=== PATIENT | female | born 1950 | race Hispanic/Latino ===

== ENCOUNTER → 2017-09-30 | Outpatient (CLI) | payer MEDICARE ==
[~2017-09-30] MED LIST: BYSTOLIC10 MG PO; CYMBALTA30 MG PO; LOSARTAN POTAS100 MG PO; PRAVASTATIN SOD20 MG PO; TRAZODONE HCL50 MG PO
--- NOTE | 2017-09-30 17:43 | Diagnostic Imaging Report ---
Lymphoscintigraphy Reason for Exam: Left breast cancer; scheduled for sentinel lymph node biopsy Radiopharmaceutical: Tc-99m filtered sulfur colloid 1.3 mCi Report: The radiotracer was given as two separate injections intradermally at the edge of the left areola. A single focal area of increased tracer accumulation is seen in the left axilla. No accumulation of tracer is seen in the midline of the chest or in the neck. Impression: Injection for sentinel lymph node mapping. A single sentinel lymph node is identified in the left axilla. Signed by: Dr. Angelina Mills M.D. on 09/30/2017 5:40 PM
== END ==
LOC: NM 13:53
PROVIDERS: ATTEND Surgery
DX: C50.912 Malignant neoplasm of unspecified site of left female breast (principal)
CPT/HCPCS: 78195; A9541

== ENCOUNTER 2017-10-01 06:59 | Observation (INO) | payer MEDICARE ==
[2017-09-30 15:55] LABS: BASOPHILS # (AUTO) 0.1 (0.0-0.1); BASOPHILS % 0.5 % (0.0-1.0); EOSINOPHILS % 10.1 % (0.0-6.0); HEMATOCRIT 33.9 % (34.2-44.1); HEMOGLOBIN 11.6 g/dL (12.0-16.0); LYMPHOCYTES % 20.5 % (18.0-39.1); MEAN CORPUSCULAR HEMOGLOBIN 29.2 pg (28-32); MEAN CORPUSCULAR HGB CONC 34.2 g/dL (31-35); MEAN CORPUSCULAR VOLUME 85.4 fL (81-99); MONOCYTES # (AUTO) 0.7 (0.2-0.8); MONOCYTES % 6.6 % (4.4-11.3); NEUTROPHILS # (AUTO) 6.1 (2.1-6.9); NEUTROPHILS % 61.8 % (38.7-80.0); PLATELET COUNT 206 x10e3/uL (140-360); RED BLOOD COUNT 3.97 x10e6/uL (3.6-5.1); RED CELL DISTRIBUTION WIDTH 12.8 % (11.7-14.4)
[2017-09-30 16:11] LABS: ANION GAP 13.9 mmol/L (8-16); BLOOD UREA NITROGEN 21 mg/dL (7-26); BUN/CREATININE RATIO 28 (6-25); CALCIUM 10.1 mg/dL (8.4-10.2); CARBON DIOXIDE 29 mmol/L (22-29); CHLORIDE 94 mmol/L (98-107); CREATININE, SERUM 0.75 mg/dL (0.57-1.11); EST GLOMERULAR FILTRATION RATE > 60 ML/MIN (60-); GLUCOSE 91 mg/dL (74-118); SODIUM 134 mmol/L (136-145)
[2017-09-30 16:13] LABS: POTASSIUM 2.9 mmol/L (3.5-5.1)
--- NOTE | 2017-09-30 16:39 | Diagnostic Imaging Report ---
PROCEDURE: X-RAY CHEST, TWO VIEWS COMPARISON: None. INDICATIONS: PREOP CXR FINDINGS: LUNGS: Sclerotic osseous lesion versus calcified nodule in the apex of the left lung measures 4 mm. Right lung is clear. The pulmonary vascular markings are normal. PLEURA: No effusions or pneumothorax. HEART \T\ MEDIASTINUM: The heart is top normal in size. The aorta is ectatic. BONES \T\ SOFT TISSUES: No lytic lesions. Soft tissues are unremarkable. CONCLUSION: Bone island or calcified nodule at left lung apex. Recommend apical lordotic images for further evaluation. Dictated by: Mic Johnson M.D. on 09/30/2017 at 16:41 Electronically approved by: Mic Johnson M.D. on 09/30/2017 at 16:41
[~2017-10-01] VITALS: Ht 157.5 cm; Wt 74.8 kg
--- OUTSIDE RECORDS SUMMARY | 2017-10-01 07:02 | XMS REPORT ---
Author Author [facility] Address Unknown Phone Unavailable Care Team Providers Care Production Control Expert Name Role Phone EFREN ARRIOLA Unavailable Unavailable Problems This patient has no known problems. Allergies, Adverse Reactions, Alerts This patient has no known allergies or adverse reactions. Medications This patient has no known medications. Results Test Description Test Time Test Comments Text Results Atomic Results Result Comments CHEST [address] [address] Patient Name: GALLO GONZALEZ MR #: [id number] : 1950 Age/Sex: 66/F Req #: [id number] Adm Physician: Ordered by: EFREN ARRIOLA MD Report #: [id number] Location: OR Room/Bed: Procedure: [id number] DX/CHEST 2 VIEWS Exam Date: 09/30/17 Exam Time: 1601 REPORT STATUS: Signed PROCEDURE: X-RAY CHEST, TWO VIEWS COMPARISON: None. INDICATIONS: PREOP CXR FINDINGS: LUNGS: Sclerotic osseous lesion versus calcified nodule in the apex of the left lung measures 4 mm. Right lung is clear. The pulmonary vascular markings are normal. PLEURA: No effusions or pneumothorax. HEART T MEDIASTINUM: The heart is top normal in size. The aorta is ectatic. BONES T SOFT TISSUES: No lytic lesions. Soft tissues are unremarkable. CONCLUSION: Bone island or calcified nodule at left lung apex. Recommend apical lordotic images for further evaluation. Dictated by: Shyla Johnson M.D. on 09/30/2017 at 16:41 Electronically approved by : Shyla Johnson M.D. on 09/30/2017 at 16:41 Dictated By: SHYLA JOHNSON MD 40 COPY TO: EFREN ARRIOLA MD NM LYMPHOSCINTIGRAPHY INCL INJ [place] [address] Patient Name: GALLO GONZALEZ MR #: [id number] : 1950 Age/Sex: 66/F Req #: [id number] Adm Physician: Ordered by: EFREN ARRIOLA MD Report #: [id number] Location: [place] Room/Bed: Procedure: [id number] NM/NM LYMPHOSCINTIGRAPHY INCL INJ Exam Date: Exam Time: REPORT STATUS: Signed Lymphoscintigraphy Reason for Exam: Left breast cancer; scheduled for sentinel lymph node biopsy Radiopharmaceutical: Tc-99m filtered sulfur colloid 1.3 mCi Report: The radiotracer was given as two separate injections intradermally at the edge of the left areola. A single focal area of increased tracer accumulation is seen in the left axilla. No accumulation of tracer is seen in the midline of the chest or in the neck. Impression: Injection for sentinel lymph node mapping. A single sentinel lymph node is identified in the left axilla. Signed by: Dr. Diana Mills M.D. on 09/30/2017 5:40 PM Dictated By: DIANA MILLS MD 39 COPY TO: EFREN ARRIOLA MD
[2017-10-01] MEDS ORDERED: CEFAZOLIN SOD 1 GM VIAL ONE ×2 (07:52→18:47)
[2017-10-01] MEDS ORDERED: POTASSIUM CHLORIDE 20MEQ/100ML 100 ML IV ONE (08:00)
[2017-10-01] MEDS ORDERED: BACITRACIN 50,000 UNIT VIAL ONE (12:53)
[2017-10-01] MEDS ORDERED: BUPIVACAINE 0.25%/EPI 30ML SDV INJ ONE (12:53)
--- NOTE | 2017-10-01 15:28 | Operative Report ---
DATE OF PROCEDURE: October 01, 2017 PREOPERATIVE DIAGNOSIS: Carcinoma of the left breast. POSTOPERATIVE DIAGNOSIS: Carcinoma of the left breast. OPERATION PERFORMED: Left total mastectomy with left axillary sentinel node dissection and right total mastectomy. ANESTHESIA: General. COMPLICATIONS: None. ESTIMATED BLOOD LOSS: 200 mL. DESCRIPTION OF PROCEDURE: With the patient lying in bed in the supine position under good general endotracheal anesthesia, after having undergone a sentinel node mapping and localization of the left axilla, both breasts and chest were prepped with Betadine solution and draped in the usual manner. The right breast was done first. An elliptical incision was made to include the nipple areolar complex, and flaps were then developed in the subcutaneous plane in all directions. The borders of the flap were superiorly the clavicle, medially the sternum, inferiorly the rectus fascia, and laterally the latissimus dorsi. The breast tissue was then taken off of the pectoralis major muscle including the fascia all the way down to the lateral border of the pectoralis muscle, and the breast was totally and completely removed and sent for pathological examination. It was properly labeled. Hemostasis was ascertained. After this was done, a matching incision was then made in the left breast to include the nipple areolar complex, and flaps were similarly developed in all directions and the breast was removed using the same exact technique. The tumor was not violated in any of its points of dissection, and the breast was totally removed and sent also for pathological examination. Using the Neoprobe, the sentinel node was easily identified in the axilla, and the axillary fascia was opened and 2 large lymph nodes with very high counts of upwards of 1500 were encountered. The rest of the axilla was pretty much quiet, and the 2 lymph nodes were then slowly and carefully removed. All bleeding points were electrocoagulated or ligated with 3-0 Vicryl, and the specimen was sent for pathological examination. The wound was irrigated. Hemostasis was ascertained, and the case was then turned over to Dr. Grossman for bilateral breast reconstructions. Job#: [id number] EV
[2017-10-01] MEDS: LACTATED RINGER'S 1,000 ML IV SCH (17:22)
[2017-10-01] MEDS ORDERED: HYDROMORPHONE 1MG/1ML INJ IV PRN (17:30)
[2017-10-01] MEDS ORDERED: ACETAMINOPHEN 325 MG TAB PO PRN (17:30)
[2017-10-01] MEDS ORDERED: ONDANSETRON HCL 4 MG ORAL DISINTEGRATING TAB SL PRN (17:30)
[2017-10-01] MEDS ORDERED: MIDAZOLAM HCL 2 MG/2 ML VIAL ONE (18:06)
[2017-10-01] MEDS ORDERED: FENTANYL CITRATE/PF 100MCG/2 ML INJ ONE (18:06)
[2017-10-01 18:24] VITALS: BP 156/65
[2017-10-01] MEDS ORDERED: SEVOFLURANE INHAL SOLN 250 ML PEN BTL ONE (18:47)
[2017-10-01] MEDS ORDERED: PROPOFOL IV EMULSION 10 MG/ML 20 ML VIAL ONE (18:47)
[2017-10-01] MEDS ORDERED: ONDANSETRON HCL INJ 2 MG/ML VIAL ONE (18:47)
[2017-10-01] MEDS ORDERED: LIDOCAINE HCL 2% LOCAL INJ 5 ML SDV VIAL INJ ONE (18:47)
[2017-10-01] MEDS ORDERED: ROCURONIUM BROMIDE 10 MG/ML 5ML VIAL ONE (18:47)
[2017-10-01] MEDS ORDERED: DEXAMETHASONE SOD PHOS INJ 4 MG/ML VIAL ONE (18:47)
[2017-10-01 20:00] VITALS: BP 150/88
[2017-10-01] MEDS: HYDROCODONE/APAP 7.5MG-325MG 1 EA TAB PO PRN (21:05)
[2017-10-01] MEDS: CEFAZOLIN SOD 1 GM VIAL IV SCH (21:12)
[2017-10-01] MEDS ORDERED: CEFAZOLIN SOD 1 GM/NS 50ML 50 ML IV SCH (22:00)
[2017-10-01] MEDS: TRAZODONE HCL 50 MG TAB PO SCH (22:43)
[2017-10-02] VITALS (7 sets, daily range): BP systolic 123–159; BP diastolic 58–88
[2017-10-02] MEDS: LACTATED RINGER'S 1,000 ML IV SCH (01:22)
[2017-10-02] MEDS: CEFAZOLIN SOD 1 GM VIAL IV SCH ×2 (05:30→14:45)
[2017-10-02 07:06] LABS: HEMATOCRIT 23.7 % (34.2-44.1); HEMOGLOBIN 7.9 g/dL (12.0-16.0)
[2017-10-02] MEDS ORDERED: DOCUSATE SODIUM 100 MG CAP PO PRN (08:00)
[2017-10-02 08:22] LABS: ANION GAP 12.2 mmol/L (8-16); BLOOD UREA NITROGEN 14 mg/dL (7-26); BUN/CREATININE RATIO 22 (6-25); CALCIUM 8.5 mg/dL (8.4-10.2); CARBON DIOXIDE 29 mmol/L (22-29); CHLORIDE 99 mmol/L (98-107); CREATININE, SERUM 0.65 mg/dL (0.57-1.11); EST GLOMERULAR FILTRATION RATE > 60 ML/MIN (60-); GLUCOSE 114 mg/dL (74-118); POTASSIUM 3.2 mmol/L (3.5-5.1); SODIUM 137 mmol/L (136-145)
[2017-10-02] MEDS: NEBIVOLOL 10 MG TAB PO SCH (08:33)
[2017-10-02] MEDS: LOSARTAN POTASSIUM 100 MG TAB PO SCH (08:33)
[2017-10-02] MEDS ORDERED: NEBIVOLOL 10 MG TAB PO SCH (09:00)
[2017-10-02] MEDS ORDERED: DOCUSATE SODIUM 100 MG CAP PO SCH ×2 (09:00)
[2017-10-02] MEDS ORDERED: MUPIROCIN 2% OINT 22 GM TUBE TOP ONE (09:00)
[2017-10-02] MEDS ORDERED: TRAZODONE HCL 50 MG TAB PO SCH (09:00)
--- NOTE | 2017-10-02 09:37 | Operative Report ---
DATE OF PROCEDURE: October 01, 2017 PREOPERATIVE DIAGNOSIS: Carcinoma, left breast. POSTOPERATIVE DIAGNOSES 1. Acquired absence of left breast and nipple. 2. Acquired absence of right breast and nipple. PROCEDURE: Bilateral reconstruction with allograft and implants. ANESTHESIA: General. HISTORY: The patient is a 66-year-old female with biopsy proven carcinoma of the left breast. She is undergoing left modified radical mastectomy with sentinel node biopsy and prophylactic right breast mastectomy by the general surgery service. The patient wishes to have immediate reconstruction following the mastectomies. The risks, benefits and alternatives of treatment were discussed with the patient. She has signed the [place] [employer] consent forms. DETAILS OF PROCEDURE: The patient was marked preoperatively in the holding area. She was taken to the OR by the general surgery service. After the completion of the mastectomies, the plastic surgical team came in. At the time, the patient was under general anesthesia, and she was in a supine position. She had been previously prepped and draped. The inspection of the mastectomy sites revealed there to be oozing bilaterally, but no significant active bleeding. On the left side, the breast had been removed and a sentinel node biopsy had been performed. On the right side, a simple mastectomy had been performed. The procedure was begun by transecting the lower third of the pectoralis major muscles on both sides using electrocautery and releasing their lower sternal attachments. This allowed the pectoralis major muscle to be elevated off the chest wall and the subpectoral space to be entered. The subpectoral space was enlarged up to the level of the clavicle and laterally to the lateral border of the pectoralis. Hemostasis was made absolute using the electrocautery. At this point, 3D allograft scaffolding by [employer] was utilized to reconstruct the inframammary fold and the lower hemisphere of the pocket, which was to contain the implant. The Galatex was prepared per retail loss prevention officer's specifications, and it was placed within each breast pocket. The Galatex was secured first at the level of the inframammary fold using 2-0 PDS sutures in an interrupted horizontal mattress fashion. Going from the 6 o'clock position to the medial sternal attachment, the Galatex was secured using interrupted sutures of PDS as well. Laterally, the natural curvature of the 3D scaffolding was used to recreate the lateral recess of the pocket and once again secured to the chest wall using 2-0 PDS in an interrupted horizontal mattress fashion. At this point, sizers were then used and placed into the 3D scaffolding lower hemisphere pocket of increasing sizes. The determining factor was the coverage of the pectoralis major muscle and the coverage of the skin and subcutaneous tissue. A 530-mL sizer allowed the largest reconstruction without the need for tissue expansion and as a single-stage reconstruction. The sizers were then removed. Both pockets were then irrigated copiously, first with bacteriostatic saline, and hemostasis was made absolute using the electrocautery. At this point, 530 mL anatomic textured sizers were prepared per retail loss prevention officer's specifications. Lot number and serial number are located within the patient's chart. The implants were then placed in their respective pockets, oriented so that they were oriented vertically and as inferior and as medial in the pocket as possible. At this point, the pectoralis major muscle was then brought over the implants and secured to the superior border of the 3D scaffolding once again using 2-0 PDS in an interrupted horizontal mattress fashion. The muscle and scaffolding completely covered the implants. The implants were noted to be in good anatomic position. At this point, the pockets were irrigated once again and 2 Brady-Alvarado drains, 15 [place], were placed on each side, one at the level of the axilla and the other at the level of the inframammary fold. The Brady-Alvarado drains exited the lateral chest wall and were secured to the skin using 3-0 nylon sutures. At this point, the skin was approximated with 3-0 Monocryl in an interrupted buried fashion followed by 4-0 Monocryl running subcuticular stitch. The skin flaps were noted to have several areas that looked to be marginally viable; however, it was felt that they would survive and skin resection was not necessary. At this point, the drains were placed on suction. Steri-Strips were applied to the surgical incision. Sterile dressings were applied to each breast. Then the patient was placed in a surgical postoperative bra. The estimated blood loss for this portion of the procedure was approximately 100 to 125 mL. Patient tolerated the procedure well and was brought to the recovery room in satisfactory condition and then admitted to the general surgery service for overnight care and observation. Job#: [id number]
[2017-10-02] MEDS: HYDROCODONE/APAP 7.5MG-325MG 1 EA TAB PO PRN (16:49)
[2017-10-02] MEDS ORDERED: HYDROMORPHONE 2MG/ML INJ IV PRN (19:30)
[2017-10-02] MEDS: TRAZODONE HCL 50 MG TAB PO SCH (21:00)
[2017-10-02] MEDS ORDERED: SIMVASTATIN 20 MG TAB PO SCH (21:00)
[2017-10-02] MEDS: POTASSIUM CHLORIDE 20MEQ/15ML UDC PO SCH (21:01)
[2017-10-03] VITALS: BP 101/51
[2017-10-03] MEDS: POTASSIUM CHLORIDE 20MEQ/15ML UDC PO SCH ×2 (01:07→06:03)
[2017-10-03 04:00] VITALS: BP 117/59
[2017-10-03] MEDS: LOSARTAN POTASSIUM 100 MG TAB PO SCH (08:40)
[2017-10-03] MEDS: NEBIVOLOL 10 MG TAB PO SCH (08:40)
[2017-10-03] MEDS: HYDROCODONE/APAP 7.5MG-325MG 1 EA TAB PO PRN (09:00)
[2017-10-03 10:37] VITALS: BP 122/59
== END 2017-10-03 11:15 | disposition home or self-care (01) ==
LOC: OR 06:59 → MED/SURG 17:25
PROVIDERS: ADMIT Surgery; ATTEND Surgery
DX: C50.912 Malignant neoplasm of unspecified site of left female breast (principal); Z80.3 Family history of malignant neoplasm of breast; I10 Essential (primary) hypertension; F41.9 Anxiety disorder, unspecified; G47.33 Obstructive sleep apnea (adult) (pediatric)
CPT/HCPCS: 15777; 19303; 19307; 19340 ×2; 36415 ×3; 71046; 80048 ×2; 84132; 85014; 85018; 85025; 88307; 93005; 99070; C1789; G0378 ×3; J0690 ×2; J1100; J2001; J2250; J2405; J3480; J7120

== ENCOUNTER → 2017-12-09 | Day surgery (SDC) | payer MEDICARE ==
[2017-12-05 13:27] LABS: BASOPHILS # (AUTO) 0.1 (0.0-0.1); BASOPHILS % 0.5 % (0.0-1.0); EOSINOPHILS # (AUTO) 0.6 (0.0-0.4); EOSINOPHILS % 6.4 % (0.0-6.0); HEMATOCRIT 33.9 % (34.2-44.1); HEMOGLOBIN 11.2 g/dL (12.0-16.0); LYMPHOCYTES # (AUTO) 2.4 (1.0-3.2); LYMPHOCYTES % 24.4 % (18.0-39.1); MEAN CORPUSCULAR HEMOGLOBIN 28.2 pg (28-32); MEAN CORPUSCULAR VOLUME 85.4 fL (81-99); MONOCYTES # (AUTO) 0.6 (0.2-0.8); NEUTROPHILS # (AUTO) 6.1 (2.1-6.9); NEUTROPHILS % 62.1 % (38.7-80.0); PLATELET COUNT 227 x10e3/uL (140-360); RED BLOOD COUNT 3.97 x10e6/uL (3.6-5.1); RED CELL DISTRIBUTION WIDTH 13.8 % (11.7-14.4)
[2017-12-05 13:38] LABS: ANION GAP 15.2 mmol/L (8-16); BLOOD UREA NITROGEN 15 mg/dL (7-26); BUN/CREATININE RATIO 21 (6-25); CALCIUM 10.2 mg/dL (8.4-10.2); CARBON DIOXIDE 29 mmol/L (22-29); CHLORIDE 99 mmol/L (98-107); CREATININE, SERUM 0.71 mg/dL (0.57-1.11); EST GLOMERULAR FILTRATION RATE > 60 ML/MIN (60-); GLUCOSE 106 mg/dL (74-118); POTASSIUM 3.2 mmol/L (3.5-5.1); SODIUM 140 mmol/L (136-145)
--- NOTE | 2017-12-05 14:20 | Diagnostic Imaging Report ---
PROCEDURE: Frontal, lateral , and apical lordotic views of the chest. COMPARISON: Patients [facility], , CHEST 2 VIEWS, 09/30/2017, 15:57. INDICATIONS: PRE OP CXR, SUSPICOUS HYPERDENSITY IN LEFT APEX REGION FINDINGS: Lines/tubes: None. Lungs: The lungs are well inflated. Apical lordotic view shows no definite nodule. There is no evidence of consolidation or pulmonary edema. Pleura: There is no pleural effusion or pneumothorax. Heart and mediastinum: Mild enlargement of the cardiac silhouette. Pulmonary vasculature is normal. Bones: No acute bony abnormality. Previously described hyperdensity in the left apex on prior exam is less conspicuous on today's exam. IMPRESSION: 1. No acute cardiopulmonary disease. 2. Previously described hyperdensity in the left apex on prior exam is less conspicuous on today's exam and may represent summation of bony shadows or less likely a focal sclerotic lesion. No definite nodule is noted on apical lordotic view. Recommend noncontrast CT chest for further evaluation. Faraz Cast M.D. Dictated by: Faraz Cast M.D. on 12/05/2017 at 14:24 Electronically approved by: Faraz Cast M.D. on 12/05/2017 at 14:24
[~2017-12-09] MED LIST changes: +BUPIVACAINE 0.25% 30ML SDV INJ ONE; +BUPIVACAINE 0.25%/EPI 30ML SDV INJ ONE; +CHLORTHALIDONE50 MG PO; +DEXAMETHASONE SOD PHOS INJ 4 MG/ML VIAL ONE; +FENTANYL CITRATE/PF 100MCG/2 ML INJ ONE; +HEPARIN SOD (PORCINE) 5,000 UNIT/ML VIAL ONE; +HYDROCODONE/APAP 7.5MG-325MG 1 EA TAB ONE; +KETOROLAC TROMETHAMINE 30 MG/ML VIAL ONE; +LIDOCAINE HCL 2% LOCAL INJ 5 ML SDV VIAL INJ ONE; +MIDAZOLAM HCL 2 MG/2 ML VIAL ONE; +NORCO 7.5-3251 EACH PO; +ONDANSETRON HCL INJ 2 MG/ML VIAL ONE; +POTASSIUM CHLO20 ME1 PO; +PROPOFOL IV EMULSION 10 MG/ML 20 ML VIAL ONE; +SEVOFLURANE INHAL SOLN 250 ML PEN BTL ONE; +SODIUM CHLORIDE 0.9% 500ML 500 ML ONE; +SUCCINYLCHOLINE 200 MG/10 ML SYR ONE
--- NOTE | 2017-12-09 13:48 | Operative Report ---
DATE OF PROCEDURE: December 09, 2017 PREOPERATIVE DIAGNOSIS: Breast cancer, needing intravenous access for chemotherapy. POSTOPERATIVE DIAGNOSIS: Breast cancer, needing intravenous access for chemotherapy. OPERATION PERFORMED: Placement of left subclavian venous access port. CITY DRIVER: Mercedes LEACH. ANESTHESIA: General. COMPLICATIONS: None. ESTIMATED BLOOD LOSS: Minimal. DESCRIPTION OF PROCEDURE: With the patient lying in bed under general anesthesia in the Trendelenburg position, the left chest and neck were prepped with Betadine solution and draped in the usual manner. A standard left subclavian venipuncture was performed, and a guidewire was advanced into central venous position. The tip of the guidewire was confirmed to be at the level of the superior vena cava with the C-arm, the left lung was fully expanded. A pocket was then created in the left anterior chest above the patient's breast implant, and the catheter was then threaded to the subclavian position. The reservoir was anchored to the anterior chest wall with interrupted sutures of 2-0 silk. The reservoir and catheter were fully heparinized, and the catheter was cut to the appropriate length. The peel-away sheath was then placed over the guidewire, and the guidewire was removed. The catheter was threaded through the peel-away sheath, and the peel-away sheath was removed. There was good blood return, and the reservoir and catheter were fully heparinized. Using the C-arm, the tip of the catheter was confirmed to be at the level of the superior vena cava and the left lung was fully expanded. The wounds were then closed in layers. The subcutaneous tissue was approximated with 3-0 and 4-0 Vicryl, and the skin was closed with subcuticular 5-0 Vicryl. Benzoin, Steri-Strips and dressings were applied. The sponge, lap and needle count was correct. The patient tolerated the procedure well and returned to the recovery room in stable condition. Job#: [id number] EV
== END | disposition home or self-care (01) ==
LOC: OR 08:21
PROVIDERS: ATTEND Surgery
DX: C50.919 Malignant neoplasm of unspecified site of unspecified female breast (principal); Z90.13 Acquired absence of bilateral breasts and nipples; I10 Essential (primary) hypertension; G47.33 Obstructive sleep apnea (adult) (pediatric); E78.5 Hyperlipidemia, unspecified
CPT/HCPCS: 36415 ×2; 36561; 71046; 77001; 80048; 84132; 85025; 93005; C1751; J1100; J1644; J1885; J2001; J2250; J2405; J7040

== ENCOUNTER → 2018-07-08 | Day surgery (SDC) | payer MEDICARE ==
--- NOTE | 2018-07-02 12:58 | Diagnostic Imaging Report ---
EXAM: CHEST 2 VIEWS, PA and lateral DATE: 07/02/2018Time stamp on exam: 11:55 AM INDICATION: Preoperative, history of breast cancer COMPARISON: None FINDINGS: LINES/TUBES: Left subclavian approach chest wall Port-A-Cath with tip overlying the SVC. LUNGS: No consolidations or edema. PLEURA: No effusions or pneumothorax. HEART AND MEDIASTINUM: Normal size and contour. BONES AND SOFT TISSUES: No acute findings. IMPRESSION: No acute thoracic abnormality. Signed by: Dr. Eric Meadows DO on 07/02/2018 12:54 PM
[~2018-07-08] MED LIST changes: +ACETAMINOPHEN 1000 MG/100 ML IV ONE; +ANASTROZOLE1 MG PO; +BACITRACIN 50,000 UNIT VIAL ONE; -BUPIVACAINE 0.25% 30ML SDV INJ ONE; -BUPIVACAINE 0.25%/EPI 30ML SDV INJ ONE; +CALCIUM PO; +CEFAZOLIN SOD 1 GM/NS 50ML 50 ML IV ONE; -HEPARIN SOD (PORCINE) 5,000 UNIT/ML VIAL ONE; +HYDRALAZINE HCL25 MG PO; -HYDROCODONE/APAP 7.5MG-325MG 1 EA TAB ONE; -KETOROLAC TROMETHAMINE 30 MG/ML VIAL ONE; +MUPIROCIN 2% OINT 22 GM TUBE ONE; -ONDANSETRON HCL INJ 2 MG/ML VIAL ONE; +ONDANSETRON HCL INJ 2MG/ML 2ML 2 MG/ML VIAL ONE; +PHENYLEPHRINE HCL 1% 10 MG/ML VIAL ONE; -SODIUM CHLORIDE 0.9% 500ML 500 ML ONE; -SUCCINYLCHOLINE 200 MG/10 ML SYR ONE
--- OUTSIDE RECORDS SUMMARY | 2018-07-08 05:26 | XMS REPORT | Continuity of Care Document ---
Author Author [facility] Interface Address Unknown Phone Unavailable Problems Problem Status Onset Date Classification Date Reported Comments Source Malignant neoplasm of upper-outer quadrant of left female breast 07/24/2017 10/17/2017 [facility] [place] Other abnormal and inconclusive findings on diagnostic imaging of breast 07/12/2017 10/14/2017 [facility] [place] Encounter for screening mammogram for malignant neoplasm of breast 06/22/2017 09/25/2017 [facility] [place] Major depressive disorder, single episode, severe without psychotic features 06/21/2017 09/24/2017 [facility] 6 WEEK FOLLOW UP Active 06/18/2017 [facility] R51 - HEADACHE R42 - DIZZINESS AND GIDDI Active 04/29/2017 [facility] [place] 4 WEEK FOLOW UP Active 04/16/2017 [facility] F/U Active 03/01/2017 [facility] 2 MONTH F/U Active 02/14/2017 [facility] 6 WEEK F/U Active 01/02/2017 [facility] 6 WEEK F/U Active 01/02/2017 [facility] 4 WEEK F/U Active 12/04/2016 [facility] EVAL Active 12/04/2016 [facility] TBI Active 11/23/2016 [facility] POST TRAUMATIC VERTIGO Active 05/20/2016 [facility] SPOKE TO ADJ [id number] TIM HOFFMANN Active 04/23/2016 [facility] [id number] Active 05/20/2000 [facility] Unspecified lump in the left breast, unspecified quadrant 10/14/2017 [facility] [place] Post-traumatic stress disorder, chronic Active Problem 10/17/2017 [facility], [facility] [place] Panic disorder [episodic paroxysmal anxiety] without agoraphobia Active Problem 10/17/2017 [facility], [facility] [place] Major depressive disorder, single episode, severe without psychotic features Active Problem 10/17/2017 [facility], [facility] [place] Estrogen receptor positive status [ER+] 10/17/2017 [facility] [place] Asymptomatic menopausal state 09/25/2017 [facility] [place] Other specified disorders of bone density and structure, unspecified site 09/25/2017 [facility] [place] Panic disorder [episodic paroxysmal anxiety] 09/24/2017 [facility] Post-traumatic stress disorder, chronic 09/24/2017 [facility] POST TRAUMATIC, VERTIGO Active [facility] Medications Medication Details Route Status Patient Instructions Ordering Provider Order Date Source Eszopiclone 3 MG Oral Tablet [Lunesta] 3 mg=1 tab, PO, Bedtime, PRN for insomnia, X 30 day, # 30 tab, 2 Refill(s) No Longer Active 06/18/2017 [facility] DULoxetine 60 mg oral delayed release capsule 120 mg=2 cap, PO, Daily, workers comp, # 60 cap, 6 Refill(s), Pharmacy: [facility] Active 06/18/2017 [facility] ALPRAZOLam 0.25 mg oral tablet, disintegrating 0.25 mg=1 tab, PO, Daily, PRN Anxiety, X 7 day, # 7 tab, 0 Refill(s) No Longer Active 06/18/2017 [facility] 24 HR quetiapine 50 MG Extended Release Tablet [Seroquel] 50 mg=1 tab, PO, Daily, # 30 tab, 2 Refill(s), Pharmacy: [facility] No Longer Active 04/19/2017 [facility] DULoxetine 60 mg oral delayed release capsule 120 mg=2 cap, PO, Daily, workers comp, # 60 cap, 3 Refill(s), [facility] No Longer Active 04/19/2017 [facility] 24 HR quetiapine 50 MG Extended Release Tablet [Seroquel] 50 mg=1 tab, PO, Daily, # 30 tab, 2 Refill(s) Active 04/16/2017 [facility] Eszopiclone 3 MG Oral Tablet [Lunesta] 3 mg=1 tab, PO, Bedtime, PRN for insomnia, X 30 day, # 30 tab, 1 Refill(s) Active 02/14/2017 [facility] aripiprazole 2 MG Oral Tablet [Abilify] 2 mg=1 tab, PO, Daily, # 30 tab, 3 Refill(s), Pharmacy: [facility] [id number] Active 02/14/2017 [facility] Eszopiclone 3 MG Oral Tablet [Lunesta] 3 mg=1 tab, PO, Bedtime, PRN for insomnia, X 30 day, # 30 tab, 1 Refill(s) Active 01/02/2017 [facility] l-methylfolate 15 mg oral tablet 15 mg=1 tab, PO, Daily, # 30 tab, 2 Refill(s) Active 01/02/2017 [facility] DULoxetine 60 mg oral delayed release capsule 120 mg=2 cap, PO, Daily, # 60 cap, 3 Refill(s), Pharmacy: [facility] [id number] Active 12/04/2016 [facility] Eszopiclone 3 MG Oral Tablet [Lunesta] 3 mg=1 tab, PO, Bedtime, PRN for insomnia, X 30 day, # 30 tab, 1 Refill(s) Active 12/04/2016 [facility] diazepam 5 mg oral tablet 5 mg=1 tab, PO, Bedtime, 0 Refill(s) Inactive 12/04/2016 [facility] DULoxetine 40 mg oral delayed release capsule 80 mg=2 cap, PO, Daily, # 60 cap, 3 Refill(s), Pharmacy: [facility] [id number] Active 09/17/2016 [facility] Diazepam 5 MG Oral Tablet [Valium] 5 mg=1 tab, PO, Bedtime, PRN Anxiety, X 30 day, # 30 tab, 1 Refill(s) Active 09/17/2016 [facility] DULoxetine 40 mg oral delayed release capsule 40 mg=1 cap, PO, Daily, # 30 cap, 0 Refill(s), Pharmacy: [facility] [id number] No Longer Active 09/04/2016 [facility] Lorazepam 1 MG Oral Tablet 1 mg=1 tab, PO, Daily, PRN Anxiety, X 30 day, # 30 tab, 0 Refill(s), called to pharmacy No Longer Active 09/04/2016 [facility] DULoxetine 40 mg oral delayed release capsule 40 mg=1 cap, PO, Daily, # 30 cap, 1 Refill(s), Pharmacy: [facility] [id number] Active 07/17/2016 [facility] LORazepam 1 mg oral tablet 1 mg=1 tab, PO, Daily, PRN Anxiety, X 30 day, # 30 tab, 1 Refill(s) Active 05/30/2016 [facility] duloxetine 20 MG Enteric Coated Capsule [Cymbalta] 20 mg=1 cap, PO, Daily, # 30 cap, 1 Refill(s) Active 05/30/2016 [facility] Chlorthalidone 50 MG Oral Tablet 50 mg=1 tab, PO, Daily, # 30 tab, 0 Refill(s) Active 05/30/2016 [facility] nebivolol 10 MG Oral Tablet [Bystolic] 10 mg=1 tab, PO, BID, # 30 tab, 0 Refill(s) Active 05/30/2016 [facility] losartan 25 mg oral tablet 25 mg=1 tab, PO, Daily, # 30 tab, 0 Refill(s) Active 05/30/2016 [facility] zolpidem 10 mg oral tablet 10 mg=1 tab, PO, Bedtime, 0 Refill(s) Active 05/30/2016 [facility] Dextromethorphan Hydrobromide 20 MG / Quinidine Sulfate 10 MG Oral Capsule [Nuedexta] 1 cap, PO, Q12H, 0 Refill(s) Active 05/30/2016 [facility] pravastatin 40 mg oral tablet 40 mg=1 tab, PO, Bedtime, # 30 tab, 0 Refill(s) Active 05/30/2016 [facility] Allergies, Adverse Reactions, Alerts Substance Category Reaction Severity Reaction type Status Date Reported Comments Source aspirin Assertion Drug allergy Active [facility] [place] Immunizations Immunization Date Given Site Status Last Updated Comments Source Results Order Name Results Value Reference Range Date Interpretation Comments Source Breast BX Uni w Clip Primary Side US Breast BX Uni w Clip Primary Side US MULTIPLE ULTRASOUND GUIDED BIOPSIES LEFT BREAST WITH MARKING DEVICES INSERTED AND POST MAMMOGRAPHIC IMAGIN07/11/2017 CLINICAL: R92.8 Other Abnormal And Inconclusive Findings On Diagnostic Imaging Of Breast/R92.8 Other Abnormal And Inconclusive Findings On Diagnostic Imaging Of Breast. PATIENT CONSENT: I discussed the risks, benefits and alternatives for the procedure with the patient. Patient acknowledged understanding and informed written consent was obtained. A time out was performed to confirm patient identification and the location of the lesion. Correlation is made to exams dated: 07/08/2017 ultrasound, 07/08/2017 mammogram, 06/19/2017 mammogram - [facility], and 05/25/2016 mammogram. An ultrasound guided biopsy using real-time ultrasound was performed for the 0.7 cm x 0.6 cm x 0.6 cm indistinct irregular shaped mass located in the left breast at 2 o'clock posterior depth 7 cm from the nipple. The skin was prepped in the usual manner. Local anesthetic was administered to the access site. A small incision was made in the breast. The abnormality was approached from the lateral aspect. A 14 gauge biopsy needle was placed adjacent to the abnormality under ultrasound guidance. Once the needle was documented to be in the correct location, four specimens were obtained using an Achieve automated firing device. A ribbon clip was inserted into the biopsy cavity. A skin closure strip was applied to the access site. Post procedure mammographic imaging was obtained. The specimens were sent to the laboratory for pathological analysis. A second ultrasound guided biopsy using real-time ultrasound was performed for the 0.6 cm x 0.5 cm x 0.4 cm indistinct irregular shaped mass located in the left breast at 2 o'clock middle depth 2 cm from the nipple. The skin was prepped in the usual manner. Local anesthetic was administered to the access site. A small incision was made in the breast. The abnormality was approached from the lateral aspect. A 14 gauge biopsy needle was placed adjacent to the abnormality under ultrasound guidance. Once the needle was documented to be in the correct location, four specimens were obtained using an Achieve automated firing device. A wing clip was inserted into the biopsy cavity. A skin closure strip was applied to the access site. Post procedure mammographic imaging was obtained. The specimens were sent to the laboratory for pathological analysis. IMPRESSION: ULTRASOUND GUIDED BIOPSY MALIGNANT Ultrasound guided biopsy of the two suspicious masses reveals multifocal malignant invasive ductal carcinoma. Pathology results are concordant with imaging findings. A surgical/oncologic consultation is recommended. These results were disucssed with Rosa at Dr. Muro's office on 07/18/17. Professional services are provided by the [facility]. Jeferson Kruger M.D. cm/:07/18/2017 10:21:00 Le[facility]el Breaster(s): Cheryl Bellamy [facility] letter sent: Surgical Consult Post Bx 07/11/2017 - - Read by: Dc Galvez MD Dictated Date/time: 07/18/17 10:21 Electronically Signed by: Dc Galvez MD 07/18/17 10:21 FINAL REPORT ARASH Ramsey Breast Complete Uni US Breast Complete Uni US ULTRASOUND OF LEFT BREAST: 07/08/2017 CLINICAL: Left Breast Mass/Abnormal Mammogram. COMPARISON:Comparison is made to exams dated: 07/08/2017 mammogram, 06/19/2017 mammogram - [facility], and 05/25/2016 mammogram. TECHNIQUE: Color flow and real-time ultrasound of the left breast were performed on the areas of interest. FINDINGS: There is 0.7 cm x 0.6 cm x 0.6 cm oval mass with an indistinct margin in the left breast at 2 o'clock posterior depth 7 cm from the nipple. This oval mass is hypoechoic. Color flow imaging demonstrates that there is no vascularity present. This finding persists on spot images. There also is 0.6 cm x 0.5 cm x 0.4 cm oval mass with an indistinct margin in the left breast at 2 o'clock middle depth 2 cm from the nipple. This oval mass is hypoechoic. Color flow imaging demonstrates that there is no vascularity present. No lymphadenopathy in the axillary or internal mammary chains was identified. IMPRESSION: SUSPICIOUS OF MALIGNANCY RECOMMENDATION:The 0.7 cm x 0.6 cm x 0.6 cm oval mass in the left breast at 2 o'clock posterior depth is at an intermediate suspicion for malignancy. An ultrasound guided biopsy is recommended. The 0.6 cm x 0.5 cm x 0.4 cm oval mass in the left breast at 2 o'clock middle depth is at an intermediate suspicion for malignancy. An ultrasound guided biopsy is recommended. This exam was interpreted at [id number] for ARASH Ramsey. Professional services are provided by the [facility]. Jeferson Kruger M.D., cm/devika:07/08/2017 15:10:21 Leather Heel Breaster(s): Julita Valiente [facility] letter sent: BI-RADS 4/5 Ultrasound BI-RADS: 4b Suspicious abnormality - intermediate suspicion of malignancy 07/08/2017 - - Read by: Dc Galvez MD Dictated Date/time: 07/08/17 15:10 Electronically Signed by: Dc Galvez MD 07/08/17 15:10 FINAL REPORT ARASH Ramsey Breast Mammo Diag UNI incl CAD MA Breast Mammo Diag UNI incl CAD MA UNILATERAL LEFT DIGITAL DIAGNOSTIC MAMMOGRAM WITH CAD: 07/08/2017 CLINICAL: Mammographic Abnormality/Mammographic Abnormality. Current study was evaluated with a Computer Aided Detection (CAD) system. COMPARISON:Comparison is made to exams dated: 06/19/2017 mammogram - [facility] and 05/25/2016 mammogram. TECHNIQUE: Mammographic views were obtained using digital acquisition. Current study was also evaluated with a Computer Aided Detection (CAD) system. FINDINGS: The tissue of left breast is almost entirely fat. There is 0.8 cm oval equal density mass with an indistinct margin in the left breast at 1 o'clock posterior depth 9 cm from the nipple. This finding persists on spot images. No other significant masses or calcifications are seen in the breast. IMPRESSION: INCOMPLETE: NEEDS ADDITIONAL IMAGING EVALUATION RECOMMENDATION:The 0.8 cm oval equal density mass in the left breast is indeterminate. An ultrasound is recommended. This exam was interpreted at [id number] for ARASH Ramsey. Professional services are provided by the [facility]. Jeferson Kruger M.D. cm/penrad:07/08/2017 14:00:20 Leather Heel Breaster(s): RT Ayan(R)(M), [facility] Mammogram BI-RADS: 0 Indeterminate 07/08/2017 - - Read by: Dc Galvez MD Dictated Date/time: 07/08/17 14:00 Electronically Signed by: Dc Galvez MD 07/08/17 14:00 FINAL REPORT ARASH Vazqueza Bone Density [employer] MA Bone Density [employer] MA BONE DENSITY ASSESSMENT: 06/19/2017 CLINICAL DATA: Post menopausal. Postmenopause. /Post Menopausal FINDINGS: Bone density evaluation was performed 06/19/2017 on the right femur neck using a Hologic unit. The BMD average for the exam is 0.725 g/cm2. The T-score is - 1.10 and the Z-score is 0.20. This matches the World Health Organization's criteria for osteopenia and places the patient at a medium risk for fracture. An additional bone density evaluation was performed 06/19/2017 on the left femur neck using a Hologic unit. The BMD average for the exam is 0.735 g/cm2. The T- score is -1.00 and the Z-score is 0.30. This matches the World Health Organization's criteria for normal bone density and places the patient within normal limits of fracture risk. An additional bone density evaluation was performed 06/19/2017 on the right hip using a Hologic unit. The BMD average for the exam is 0.892 g/cm2. The T-score is -0.40 and the Z-score is 0.60. This matches the World Health Organization's criteria for normal bone density and places the patient within normal limits of fracture risk. An additional bone density evaluation was performed 06/19/2017 on the left hip using a Hologic unit. The BMD average for the exam is 0.961 g/cm2. The T-score is 0.20 and the Z-score is 1.10. This matches the World Health Organization's criteria for normal bone density and places the patient within normal limits of fracture risk. An additional bone density evaluation was performed 06/19/2017 on the AP L1-L2 region of spine using a Hologic unit. The BMD average for the exam is 0.905 g/cm2. The T-score is -0.70 and the Z-score is 1.00. This matches the World Health Organization's criteria for normal bone density and places the patient within normal limits of fracture risk. FRAX 10 year probability of major osteoporotic fracture is 4.3% and hip fracture is 0.3%. IMPRESSION: OSTEOPENIA Patient is at medium risk for fracture. This exam was interpreted at [id number] for ERIC Flores 15. Jeferson Kruger M.D., cm/penrad:06/19/2017 14:57:39 Leather Heel Breaster(s): Eleanor MERINO(R)(M), [facility] 06/19/2017 - - Read by: Dc Galvez MD Dictated Date/time: 06/19/17 14:57 Electronically Signed by: Dc Galvez MD 06/19/17 14:57 FINAL REPORT [facility] [place] Breast Mammo Scrn ALLEY incl CAD MA Breast Mammo Scrn ALLEY incl CAD MA BILATERAL DIGITAL SCREENING MAMMOGRAM WITH CAD: 06/19/2017 CLINICAL: Routine/Screening. Current study was evaluated with a Computer Aided Detection (CAD) system. COMPARISON:Comparison is made to exam dated: 05/25/2016 mammogram. TECHNIQUE: Mammographic views were obtained using digital acquisition. Current study was also evaluated with a Computer Aided Detection (CAD) system. FINDINGS: The tissue of both breasts is almost entirely fat. There is 0.8 cm oval equal density mass with an indistinct margin in the left breast at 1 o'clock middle depth 9 cm from the nipple. No other significant masses, calcifications, or other findings are seen in either breast. IMPRESSION: INCOMPLETE: NEEDS ADDITIONAL IMAGING EVALUATION RECOMMENDATION:The 0.8 cm oval equal density mass in the left breast is indeterminate. Diagnostic mammography views as well as an ultrasound are recommended. This exam was interpreted at [id number] for ARASH Ramsey. Professional services are provided by the [facility]. Jeferson Kruger M.D. cm/penrad:06/27/2017 14:53:30 Leather Heel Breaster(s): RT Nataly(R)(M), [facility] letter sent: BI-RADS 0 Mammogram BI-RADS: 0 Indeterminate 06/19/2017 - - Read by: Dc Galvez MD Dictated Date/time: 06/27/17 14:53 Electronically Signed by: Dc Galvez MD 06/27/17 14:53 FINAL REPORT AFUA Ramsey CHEM PANEL eGFR 86 mL/min/1.73m2 06/18/2017 Result Comment: The eGFR is calculated using the CKD-EPI formula. In most young, healthy individuals the eGFR will be >90 mL/min/1.73m2. The eGFR declines with age. An eGFR of 60-89 may be normal in some populations, particularly the elderly, for whom the CKD-EPI formula has not been extensively validated. Use of the eGFR is not recommended in the following populations: Individuals with unstable creatinine concentrations, including patients and those with serious co-morbid conditions. Patients with extremes in muscle mass or diet. The data above are obtained from the National Kidney Disease Education Program (NKDEP) which additionally recommends that when the eGFR is used in patients with extremes of body mass index for purposes of drug dosing, the eGFR should be multiplied by the estimated BMI. [facility] CHEM PANEL Creatinine Lvl 0.73 mg/dL 0.50 - 1.40 06/18/2017 [facility] CHEM PANEL Glucose Lvl 99 mg/dL 70 - 99 06/18/2017 [facility] CHEM PANEL BUN 20 mg/dL 7 - 22 06/18/2017 [facility] CHEM PANEL Globulin 3.3 g/dL 2.7 - 4.2 06/18/2017 [facility] CHEM PANEL A/G Ratio 1.2 0.7 - 1.6 06/18/2017 [facility] CHEM PANEL Sodium Lvl 139 meq/L 135 - 145 06/18/2017 [facility] CHEM PANEL Potassium Lvl 3.2 meq/L 3.5 - 5.1 06/18/2017 [facility] CHEM PANEL AST 27 unit/L 0 - 37 06/18/2017 [facility] CHEM PANEL AGAP 11.2 meq/L 10.0 - 20.0 06/18/2017 [facility] CHEM PANEL B/C Ratio 27 6 - 25 06/18/2017 [facility] CHEM PANEL Total Protein 7.4 g/dL 6.4 - 8.4 06/18/2017 [facility] CHEM PANEL Calcium Lvl 9.3 mg/dL 8.5 - 10.5 06/18/2017 [facility] CHEM PANEL Bili Total 0.4 mg/dL 0.2 - 1.3 06/18/2017 [facility] CHEM PANEL Chloride Lvl 100 meq/L 95 - 109 06/18/2017 [facility] CHEM PANEL CO2 31 meq/L 24 - 32 06/18/2017 [facility] CHEM PANEL Alk Phos 64 unit/L 39 - 136 06/18/2017 [facility] CHEM PANEL ALT 45 unit/L 0 - 65 06/18/2017 [facility] CHEM PANEL Albumin Lvl 4.1 g/dL 3.5 - 5.0 06/18/2017 [facility] HEMATOLOGY MPV 11.9 fL 7.4 - 10.4 06/18/2017 [facility] HEMATOLOGY RDW 12.5 % 11.5 - 14.5 06/18/2017 [facility] HEMATOLOGY Platelet 201 K/CMM 133 - 450 06/18/2017 [facility] HEMATOLOGY MCHC 34.0 g/dL 32.0 - 36.0 06/18/2017 [facility] HEMATOLOGY Hct 36.6 % 36.0 - 48.0 06/18/2017 [facility] HEMATOLOGY Hgb 12.4 g/dL 12.0 - 16.0 06/18/2017 [facility] HEMATOLOGY MCH 29.0 pg 27.0 - 31.0 06/18/2017 [facility] HEMATOLOGY MCV 85.3 fL 80.0 - 98.0 06/18/2017 [facility] HEMATOLOGY RBC 4.29 M/CMM 4.20 - 5.40 06/18/2017 [facility] HEMATOLOGY WBC 8.0 K/CMM 3.7 - 10.4 06/18/2017 [facility] Brain wo contrast MRI Brain wo contrast MRI MRI OF BRAIN WITHOUT CONTRAST, 05/14/2017 HISTORY: Posttraumatic headache. TECHNIQUE: Sequences include axial, coronal, and sagittal T1, T2, FLAIR and diffusion-weighted images. FINDINGS: The volume of the brain is appropriate for age. No evidence of white matter lesions. No acute ischemic or hemorrhagic infarct detected. No mass lesions or extracerebral fluid collections noted. No shift in midline indicators seen. The cerebellum, brain stem, and arteries at the brain base are unremarkable in appearance. The orbits and central skull base demonstrate no abnormality. Minimal mucous membrane thickening in the left ethmoid and left maxillary sinus. IMPRESSION: Normal MRI of brain without contrast. 05/14/2017 - - Read by: Mahad Song MD Dictated Date/time: 05/14/17 07:59 Electronically Signed by: Mahad Song MD 05/14/17 08:09 FINAL REPORT [facility] [place] Vital Signs Vital Sign Value Date Comments Source Weight 77.273 06/18/2017 [facility] Height 157.48 cm 06/18/2017 [facility] BMI Calculated 31.16 06/18/2017 [facility] Heart Rate 81 06/18/2017 [facility] Respitory Rate 20 06/18/2017 [facility] Systolic (mm Hg) 138 06/18/2017 [facility] Diastolic (mm Hg) 80 06/18/2017 [facility] Weight 77.273 04/16/2017 [facility] BMI Calculated 31.16 04/16/2017 [facility] Height 157.48 cm 04/16/2017 [facility] Systolic (mm Hg) 147 04/16/2017 [facility] Diastolic (mm Hg) 89 04/16/2017 [facility] Respitory Rate 16 04/16/2017 [facility] Heart Rate 103 04/16/2017 [facility] Weight 76.818 02/14/2017 [facility] BMI Calculated 30.98 02/14/2017 [facility] Height 157.48 cm 02/14/2017 [facility] Heart Rate 67 02/14/2017 [facility] Respitory Rate 20 02/14/2017 [facility] Systolic (mm Hg) 132 02/14/2017 [facility] Diastolic (mm Hg) 71 02/14/2017 [facility] Temperature Oral (F) 98.2 F 02/14/2017 [facility] Weight 77.273 01/02/2017 [facility] Height 157.48 cm 01/02/2017 [facility] BMI Calculated 31.16 01/02/2017 [facility] Heart Rate 68 01/02/2017 [facility] Respitory Rate 16 01/02/2017 [facility] Systolic (mm Hg) 121 01/02/2017 [facility] Diastolic (mm Hg) 71 01/02/2017 [facility] Systolic (mm Hg) 153 12/04/2016 [facility] Diastolic (mm Hg) 82 12/04/2016 [facility] Heart Rate 64 12/04/2016 [facility] Respitory Rate 20 12/04/2016 [facility] BMI Calculated 30.43 12/04/2016 [facility] Height 157.48 cm 12/04/2016 [facility] Weight 75.455 12/04/2016 [facility] BMI Calculated 31.16 09/17/2016 [facility] Height 157.48 cm 09/17/2016 [facility] Weight 77.273 09/17/2016 [facility] Respitory Rate 20 09/17/2016 [facility] Heart Rate 70 09/17/2016 [facility] Systolic (mm Hg) 134 09/17/2016 [facility] Diastolic (mm Hg) 74 09/17/2016 [facility] Weight 73.182 07/17/2016 [facility] BMI Calculated 29.51 07/17/2016 [facility] Height 157.48 cm 07/17/2016 [facility] Systolic (mm Hg) 114 07/17/2016 [facility] Diastolic (mm Hg) 69 07/17/2016 [facility] Respitory Rate 20 07/17/2016 [facility] Heart Rate 73 07/17/2016 [facility] Height 157.48 cm 05/30/2016 [facility] Weight 71.818 05/30/2016 [facility] BMI Calculated 28.96 05/30/2016 [facility] Heart Rate 61 05/30/2016 [facility] Respitory Rate 18 05/30/2016 [facility] Systolic (mm Hg) 154 05/30/2016 [facility] Diastolic (mm Hg) 82 05/30/2016 [facility] Encounters Location Location Details Encounter Type Encounter Number Reason For Visit Attending Provider ADM Date DC Date Status Source [facility] Outpatient [id number] Nelson Bello 05/30/2016 05/31/2016 [facility] [place] OP Therapy Patients [id number] Chung Mujicaios 06/08/2016 07/08/[address] [facility] [place] [facility] [id number] Chung Logan 07/10/2016 08/09/2016 [facility] Outpatient [id number] Nelson Bello 07/17/2016 07/18/2016 MH [facility] Outpatient [id number] Nelson Bello 09/17/2016 09/18/2016 MH [facility] Outpatient [id number] Nelson Bello 12/04/2016 12/05/2016 MH [facility] Therapy [id number] Chung Logan 12/07/2016 01/06/2017 MH [facility] Outpatient [id number] Nelson Bello 12/27/2016 12/28/2016 MH [facility] Outpatient [id number] Nelson Bello 01/02/2017 01/03/2017 MH [facility] Outpatient [id number] Nelson Bello 02/14/2017 02/15/2017 MH [facility] Outpatient [id number] Nelson Bello 03/01/2017 03/02/2017 MH [facility] Recurring [id number] Chung Logan 03/26/2017 04/25/2017 MH [facility] Outpatient [id number] Nelson Bello 03/29/2017 03/30/2017 [facility] Outpatient [id number] Nelson Bello 04/08/2017 04/09/2017 [facility] Outpatient [id number] Nelson Bello 04/16/2017 04/17/2017 [facility] [facility] [place] [facility] [id number] Emerson Lindsey Jr 05/14/2017 05/15/2017 [facility] [place] [facility] Outpatient [id number] Nelson Bello 06/18/2017 06/19/2017 [facility] Outpatient Imaging - [place] [facility] [id number] Christophe Muro 06/19/2017 06/20/2017 [facility] [place] [facility] Outpatient Imaging - [place] [facility] [id number] Christophe Muro 07/08/2017 07/09/2017 [facility] [place] [facility] Outpatient [facility] - [place] [facility] [id number] [facility] 07/11/2017 07/12/2017 [facility] [place] Procedures Procedure Code Date Perfomer Comments Source Incision<sup>1</sup> [id number] [place] above (R) eye. [facility] Incision<sup>1</sup> [id number] [place] above (R) eye. [facility] Incision<sup>1</sup> [id number] [place] above (R) eye. [facility] [place] Incision<sup>1</sup> [id number] [place] above (R) eye. [facility] [place]
--- NOTE | 2018-07-08 07:05 | NUR ---
SPIRITUAL CARE - Pre-Surgery Assessment: Pt in bed. Pt reported supportive attention from family and friends. Intervention: I provided pastoral presence, hospitality, and sympathetic listening. I acquainted pt with availability of ship's captain while hospitalized. Outcome: Pt expressed appreciation for visit. No need for follow up indicated at this time. PETERSON Halllain Spiritual Care Department O: [phone] Pager: [phone] ([phone] number calling from)
[2018-07-08 09:30] VITALS: BP 128/71
--- NOTE | 2018-07-08 15:26 | Operative Report ---
DATE OF PROCEDURE: 07/08/2018 PREOPERATIVE DIAGNOSIS: Deformity of bilateral reconstructed breasts. POSTOPERATIVE DIAGNOSIS: Deformity of bilateral reconstructed breasts. PROCEDURE: Revision of bilateral breast reconstruction. ANESTHESIA: General. HISTORY: The patient is a 67-year-old female who underwent bilateral mastectomy with one stage reconstruction. The patient had received chemotherapy and returned to the office for interval followup. She has several deformities of the reconstructive breast, which need attending too. On the medial aspect of the right breast, there is both redundant soft tissue access along with hollowing out of the subcutaneous layer medially. On the left side, there is a large amount of redundant skin and subcutaneous tissue as well as herniation of the implant on the lateral aspect. The risks, benefits, and alternatives of treatment were discussed with the patient and she has signed the [place] [employer] consent forms and she is prepared to undergo the procedure as outlined. DESCRIPTION OF PROCEDURE: The patient was marked preoperatively in the holding area in the upright position. She was brought to the operating theater and after the induction of adequate general anesthesia, she was prepped and draped in a supine position and a time-out was performed. The procedure was began on the right breast first. Medially, the incision was made through the skin and subcutaneous tissues. Bleeding was controlled using the electrocautery. The incision was deepened through the subcutaneous layer where the redundant skin and soft tissue was removed. Medially, there was opacity of tissue from the previous mastectomy site. In order to fill this void, an adipofascial flap was designed by using electrocautery and releasing the adipofascial flap from the undersurface of the skin flaps both superiorly and inferiorly. Once the flaps had been undermined sufficiently, the adipofascial flap remained adherent to the underlying capsule for its vascularity. It was then moved medially into the void created by the mastectomy procedure. It was sutured in placed using 3-0 Monocryl in an interrupted buried fashion. At this point, assessment of the void was noted at the hollowing out was corrected and the bulging on the central aspect of the breast was also corrected. The skin was then approximated with 3-0 Monocryl in an interrupted buried fashion followed by a 4-0 Monocryl running subcuticular stitch. On the left breast, there was a significant amount of redundant soft tissue inferior to the mastectomy incision to the level of the inframammary crease. There also appeared to be lateral migration of the breast implants. The incision was made through the skin and subcutaneous tissues. Bleeding was controlled using the electrocautery. The skin and subcutaneous tissue was then incised using electrocautery and then removed in the deep subcutaneous plane from the entire width of the breast. The wound then was made hemostatic using the electrocautery. At this point in order to advance the inferior flap and correct the redundancy even more, the lower mastectomy flap was undermined using the electrocautery superior to the pectoralis major allograft interface. This was taken all the way down to the chest wall from the medial aspect of the breast to the lateral inframammary fold. Once this flap had been completely mobilized, the wound was made hemostatic using the electrocautery. It was clear that the lateral capsular support for the implant was not sufficient and it allowed lateral migration of the implant. In order to correct this rather than place an onlay allograft, it was felt that imbrication of the existing capsule could be performed without opening the capsule and exposing the implant. The implant was pushed medially until it had a satisfactory position and then using 2-0 PDS suture in an interrupted buried [id number] fashion, the capsule was imbricated laterally to maintain the lateral support on the implant. Once all the sutures had been placed, it was noted that the repair withhold and there was no need for an onlay of allograft material. At this point, the wound was irrigated with bacteriostatic saline and the incision was then closed with 3-0 Monocryl in an interrupted buried fashion followed by a 4-0 Monocryl running subcuticular stitch. At this point, the skin was closed with 3-0 Monocryl in an interrupted buried fashion followed by 4-0 Monocryl running subcuticular stitch. Steri-Strips were applied to both incisions. Sterile dressings were applied. The estimated blood loss for procedure was 50-100 mL. The patient tolerated the procedure well, was brought to the recovery room in satisfactory condition and discharged with the postoperative instruction sheet as well as a followup appointment. MD CLAYTON Kennedy/ESTELA /[id number]
== END | disposition home or self-care (01) ==
LOC: OR 05:23
PROVIDERS: ATTEND Plastic Surgery
DX: N65.0 Deformity of reconstructed breast (principal); N65.1 Disproportion of reconstructed breast; Z85.3 Personal history of malignant neoplasm of breast; Z90.13 Acquired absence of bilateral breasts and nipples; I10 Essential (primary) hypertension; F41.9 Anxiety disorder, unspecified; Z88.6 Allergy status to analgesic agent; Z01.810 Encounter for preprocedural cardiovascular examination; Z01.818 Encounter for other preprocedural examination; Z92.21 Personal history of antineoplastic chemotherapy
CPT/HCPCS: 19380; 71046; 93005; J0131; J0690; J1100; J2001; J2250; J2370; J2405; J2704

== ENCOUNTER → 2018-11-27 | Day surgery (SDC) | payer MEDICARE ==
[2018-11-24 17:23] LABS: BASOPHILS % 0.4 % (0.0-1.0); EOSINOPHILS # (AUTO) 0.8 (0.0-0.4); EOSINOPHILS % 9.6 % (0.0-6.0); HEMATOCRIT 35.6 % (34.2-44.1); HEMOGLOBIN 11.8 g/dL (12.0-16.0); LYMPHOCYTES # (AUTO) 1.4 (1.0-3.2); LYMPHOCYTES % 18.3 % (18.0-39.1); MEAN CORPUSCULAR HEMOGLOBIN 29.4 pg (28-32); MEAN CORPUSCULAR HGB CONC 33.1 g/dL (31-35); MEAN CORPUSCULAR VOLUME 88.6 fL (81-99); MONOCYTES # (AUTO) 0.6 (0.2-0.8); MONOCYTES % 7.4 % (4.4-11.3); NEUTROPHILS % 63.8 % (38.7-80.0); PLATELET COUNT 175 x10e3/uL (140-360); RED BLOOD COUNT 4.02 x10e6/uL (3.6-5.1); RED CELL DISTRIBUTION WIDTH 13.2 % (11.7-14.4)
[~2018-11-27] MED LIST changes: +CEFAZOLIN SOD 1 GM VIAL ONE; +CEFAZOLIN SOD 1 GM/NS 50ML 0 ML IV ONE; -CEFAZOLIN SOD 1 GM/NS 50ML 50 ML IV ONE; +EPHEDRINE SULFATE INJ 50 MG/10 ML SYR ONE; +GENTAMICIN SULFATE 40 MG/ML 2 ML VIAL ONE; +METOPROLOL SUCC25 MG PO; -PHENYLEPHRINE HCL 1% 10 MG/ML VIAL ONE; +SODIUM CHLORIDE 0.9% 500ML 0 ML ONE
--- OUTSIDE RECORDS SUMMARY | 2018-11-27 05:34 | XMS REPORT | Continuity of Care Document ---
Author Author NOSTROMO ICT [facility] Address Unknown Phone Unavailable Care Team Providers Care Water Leak Repairer Name Role Phone [facility] Unavailable Unavailable Problems Problem Status Onset Date Classification Date Reported Comments Source Malignant neoplasm of upper-outer quadrant of left female breast 07/24/2017 10/17/2017 [facility] [place] Other abnormal and inconclusive findings on diagnostic imaging of breast 07/12/2017 10/14/2017 [facility] AINS[facility] [place] Encounter for screening mammogram for malignant neoplasm of breast 06/22/2017 09/25/2017 [facility] [place] Major depressive disorder, single episode, severe without psychotic features 06/21/2017 09/24/2017 [facility] 6 WEEK FOLLOW UP Active 06/18/2017 [facility] R51 - HEADACHE R42 - DIZZINESS AND GIDDI Active 04/29/2017 [facility] [place] 4 WEEK FOLOW UP Active 04/16/2017 [facility] F/U Active 03/01/2017 [facility] 2 MONTH F/U Active 02/14/2017 [facility] 6 WEEK F/U Active 01/02/2017 [facility] EVAL Active 12/04/2016 [facility] 4 WEEK F/U Active 12/04/2016 [facility] TBI Active 11/23/2016 [facility] POST TRAUMATIC VERTIGO Active 05/20/2016 [facility] SPOKE TO ADJ [id number] TIM HOFFMANN Active 04/23/2016 [facility] [id number] Active 05/20/2000 [facility] Asymptomatic menopausal state 09/25/2017 MH [facility] [place] Other specified disorders of bone density and structure, unspecified site 09/25/2017 [facility] [place] Post-traumatic stress disorder, chronic Active Problem 10/17/2017 [facility] [place], [facility] [place],[facility] Panic disorder [episodic paroxysmal anxiety] without agoraphobia Active Problem 10/17/2017 [facility], [facility] [place], [facility] [place],[facility] Major depressive disorder, single episode, severe without psychotic features Active Problem 10/17/2017 [facility], [facility] [place], [facility] [place],[facility] Unspecified lump in the left breast, unspecified quadrant 10/14/2017 [facility] [place] Panic disorder [episodic paroxysmal anxiety] 09/24/2017 [facility] Post-traumatic stress disorder, chronic 09/24/2017 [facility] Estrogen receptor positive status [ER+] 10/17/2017 [facility] [place] POST TRAUMATIC, VERTIGO Active [facility] Medications Medication Details Route Status Patient Instructions Ordering Provider Order Date Source Eszopiclone 3 MG Oral Tablet [Lunesta] 3 mg=1 tab, PO, Bedtime, PRN for insomnia, X 30 day, # 30 tab, 2 Refill(s) No Longer Active 06/18/2017 [facility] DULoxetine 60 mg oral delayed release capsule 120 mg=2 cap, PO, Daily, workers comp, # 60 cap, 6 Refill(s), Pharmacy: [facility] Active 06/18/2017 [facility] ALPRAZOLam 0.25 mg oral tablet, disintegrating 0.25 mg=1 tab, PO, Daily, PRN Anxiety, X 7 day, # 7 tab, 0 Refill(s) No Longer Active 06/18/2017 [facility] 24 HR quetiapine 50 MG Extended Release Tablet [Seroquel] 50 mg=1 tab, PO, Daily, # 30 tab, 2 Refill(s), Pharmacy: [facility] No Longer Active 04/19/2017 [facility] DULoxetine 60 mg oral delayed release capsule 120 mg=2 cap, PO, Daily, workers comp, # 60 cap, 3 Refill(s), Pharmacy: [facility] No Longer Active 04/19/2017 [facility] 24 HR quetiapine 50 MG Extended Release Tablet [Seroquel] 50 mg=1 tab, PO, Daily, # 30 tab, 2 Refill(s) Active 04/16/2017 [facility] Eszopiclone 3 MG Oral Tablet [Lunesta] 3 mg=1 tab, PO, Bedtime, PRN for insomnia, X 30 day, # 30 tab, 1 Refill(s) Active 02/14/2017 [facility] aripiprazole 2 MG Oral Tablet [Abilify] 2 mg=1 tab, PO, Daily, # 30 tab, 3 Refill(s), [facility] [id number] Active 02/14/2017 [facility] Eszopiclone 3 MG Oral Tablet [Lunesta] [...] Daily, # 60 cap, 3 Refill(s), [id number] Active 12/04/2016 [facility] Eszopiclone 3 MG Oral Tablet [Lunesta] 3 mg=1 tab, PO, Bedtime, PRN for insomnia, X 30 day, # 30 tab, 1 Refill(s) Active 12/04/2016 [facility] diazepam 5 mg oral tablet 5 mg=1 tab, PO, Bedtime, 0 Refill(s) Inactive 12/04/2016 [facility] DULoxetine 40 mg oral delayed release capsule 80 mg=2 cap, PO, Daily, # 60 cap, 3 Refill(s), Pharmacy: [email or web address] [id number] Active 09/17/2016 [facility] Diazepam 5 MG Oral Tablet [Valium] 5 mg=1 tab, PO, Bedtime, PRN Anxiety, X 30 day, # 30 tab, 1 Refill(s) Active 09/17/2016 [facility] DULoxetine 40 mg oral delayed release capsule 40 mg=1 cap, PO, Daily, # 30 cap, 0 Refill(s), Pharmacy: [email or web address] [id number] No Longer Active 09/04/2016 [facility] Lorazepam 1 MG Oral Tablet 1 mg=1 tab, PO, Daily, PRN Anxiety, X 30 day, # 30 tab, 0 Refill(s), called to pharmacy No Longer Active 09/04/2016 [facility] DULoxetine 40 mg oral delayed release capsule 40 mg=1 cap, PO, Daily, # 30 cap, 1 Refill(s), Pharmacy: [facility] [id number] Active 07/17/2016 [facility] LORazepam 1 mg oral [...] Source aspirin Assertion Drug allergy Active OP[facility] [place] Immunizations No Data Provided for This Section Results Order Name Results Value Reference Range Date Interpretation Comments Source CHEM PANEL eGFR 86 06/18/2017 Result Comment: The eGFR is calculated [...] BMI. [facility] CHEM PANEL Creatinine Lvl 0.73 0.50 - 1.40 06/18/2017 [facility] CHEM PANEL Glucose Lvl 99 70 - 99 06/18/2017 [facility] CHEM PANEL BUN 20 7 - 22 06/18/2017 [facility] CHEM PANEL Globulin 3.3 2.7 - 4.2 06/18/2017 [facility] CHEM PANEL A/G Ratio 1.2 0.7 - 1.6 06/18/2017 [facility] CHEM PANEL Sodium Lvl 139 135 - 145 06/18/2017 [facility] CHEM PANEL Potassium Lvl 3.2 3.5 - 5.1 06/18/2017 [facility] CHEM PANEL AST 27 0 - 37 06/18/2017 [facility] CHEM PANEL AGAP 11.2 10.0 - 20.0 06/18/2017 [facility] CHEM PANEL B/C Ratio 27 6 - 25 06/18/2017 [facility] CHEM PANEL Total Protein 7.4 6.4 - 8.4 06/18/2017 [facility] CHEM PANEL Calcium Lvl 9.3 8.5 - 10.5 06/18/2017 [facility] CHEM PANEL Bili Total 0.4 0.2 - 1.3 06/18/2017 [facility] CHEM PANEL Chloride Lvl 100 95 - 109 06/18/2017 [facility] CHEM PANEL CO2 31 24 - 32 06/18/2017 [facility] CHEM PANEL Alk Phos 64 39 - 136 06/18/2017 [facility] CHEM PANEL ALT 45 0 - 65 06/18/2017 [facility] CHEM PANEL Albumin Lvl 4.1 3.5 - 5.0 06/18/2017 [facility] HEMATOLOGY MPV 11.9 7.4 - 10.4 06/18/2017 [facility] HEMATOLOGY RDW 12.5 11.5 - 14.5 06/18/2017 [facility] HEMATOLOGY Platelet 201 133 - 450 06/18/2017 [facility] HEMATOLOGY MCHC 34.0 32.0 - 36.0 06/18/2017 [facility] Hct 36.6 36.0 - 48.0 06/18/2017 [facility] Hgb 12.4 12.0 - 16.0 06/18/2017 [facility] HEMATOLOGY MCH 29.0 27.0 - 31.0 06/18/2017 [facility] MCV 85.3 80.0 - 98.0 06/18/2017 [facility] HEMATOLOGY RBC 4.29 4.20 - 5.40 06/18/2017 [facility] HEMATOLOGY WBC 8.0 3.7 - 10.4 06/18/2017 [facility] Pathology Reports No Data Provided for This Section Diagnostic Reports Report Value Date Source Breast BX Uni w Clip Primary [...] 07/08/2017 ultrasound, 07/08/2017 mammogram, 06/19/2017 mammogram - [facility], and 05/25/2016 mammogram. An ultrasound guided biopsy [...] Professional services are provided by the [facility] Division of Diagnostic Imaging. Jeferson Kruger M.D. cm/:07/18/2017 10:21:00 Clay Carman(s): Cheryl Bellamy [facility] letter sent: Surgical Consult Post Bx 07/11/2017 AFUA [place] Breast Complete Uni US ULTRASOUND OF LEFT BREAST: 07/08/2017 CLINICAL: Left Breast Mass/Abnormal Mammogram. COMPARISON:Comparison is made to exams dated: 07/08/2017 mammogram, 06/19/2017 mammogram - [facility], and 05/25/2016 mammogram. TECHNIQUE: Color flow and [...] is recommended. This exam was interpreted at [id number] for ARASH Ramsey. Professional services are provided by the [facility] Division of Diagnostic Imaging. Jeferson Kruger M.D., cm/penrad:07/08/2017 15:10:21 Clay Carman(s): Julita Valiente [facility] letter sent: BI-RADS 4/5 Ultrasound BI-RADS: 4b Suspicious abnormality - intermediate suspicion of malignancy 07/08/2017 AFUA [place] Breast Mammo Diag UNI incl CAD MA UNILATERAL LEFT DIGITAL DIAGNOSTIC MAMMOGRAM WITH CAD: 07/08/2017 CLINICAL: Mammographic Abnormality/Mammographic Abnormality. Current study was evaluated with a Computer Aided Detection (CAD) system. COMPARISON:Comparison is made to exams dated: 06/19/2017 mammogram - [facility] and 05/25/2016 mammogram. TECHNIQUE: Mammographic views were [...] is recommended. This exam was interpreted at [id number] for ARASH Ramsey. Professional services are provided by the [facility] Division of Diagnostic Imaging. Jeferson Kruger M.D., cm/penrad:07/08/2017 14:00:20 Clay Carman(s): RT Ayan(Yeni)(M), [facility] [place] Mammogram BI-RADS: 0 Indeterminate 07/08/2017 ARASH CAAL [place] Bone Density DXA [employer] MA BONE [...] for fracture. This exam was interpreted at [id number] for ARASH Pate, 15. Jeferson Kruger M.D. cm/penrad:06/19/2017 14:57:39 Clay Carman(s): Eleanor Vo RT(R)(M), [facility] 06/19/2017 [facility] [place] Breast Mammo Scrn ALLEY incl CAD MA [...] are recommended. This exam was interpreted at [id number] for ARASH Ramsey. Professional services are provided by the [facility] Division of Diagnostic Imaging. Jeferson Kruger M.D. /penrad:06/27/2017 14:53:30 Clay Carman(s): RT Nataly(R)(M), [facility] letter sent: BI-RADS 0 Mammogram BI-RADS: 0 Indeterminate 06/19/2017 AFUA [place] Brain wo contrast MRI MRI OF BRAIN [...] Normal MRI of brain without contrast. 05/14/2017 OP[facility] [place] Consultation Notes No Data Provided for This Section Discharge Summaries No Data Provided for This Section History and Physicals No Data Provided for This Section Vital Signs Vital Sign Value Date Comments Source Weight 77.273 06/18/2017 [facility] Height 157.48 cm 06/18/2017 [facility] BMI Calculated 31.16 06/18/2017 [facility] Heart Rate 81 06/18/2017 [facility] Respitory Rate 20 06/18/2017 [facility] Systolic (mm Hg) 138 06/18/2017 [facility] Diastolic (mm Hg) 80 06/18/2017 [facility] Weight 77.273 04/16/2017 [facility] BMI Calculated 31.16 04/16/2017 [facility] Height 157.48 cm 04/16/2017 [facility] Systolic (mm Hg) 147 04/16/2017 [facility] Diastolic (mm Hg) 89 04/16/2017 [facility] Respitory Rate 16 04/16/2017 [facility] Heart Rate 103 04/16/2017 [facility] Weight 76.818 02/14/2017 [facility] BMI Calculated 30.98 02/14/2017 [facility] Height 157.48 cm 02/14/2017 [facility] Heart Rate 67 02/14/2017 [facility] Respitory Rate 20 02/14/2017 [facility] Systolic (mm Hg) 132 02/14/2017 [facility] Diastolic (mm Hg) 71 02/14/2017 [facility] Temperature Oral (F) 98.2 F 02/14/2017 [facility] Weight 77.273 01/02/2017 [facility] Height 157.48 cm 01/02/2017 [facility] BMI Calculated 31.16 01/02/2017 [facility] Heart Rate 68 01/02/2017 [facility] Respitory Rate 16 01/02/2017 [facility] Systolic (mm Hg) 121 01/02/2017 [facility] Diastolic (mm Hg) 71 01/02/2017 [facility] Systolic (mm Hg) 153 12/04/2016 [facility] Diastolic (mm Hg) 82 12/04/2016 [facility] Heart Rate 64 12/04/2016 [facility] Respitory Rate 20 12/04/2016 [facility] BMI Calculated 30.43 12/04/2016 [facility] Height 157.48 cm 12/04/2016 [facility] Weight [...] [facility] Systolic (mm Hg) 114 07/17/2016 [facility] Diastolic (mm Hg) 69 07/17/2016 [facility] Respitory Rate 20 07/17/2016 [facility] Heart Rate 73 07/17/2016 [facility] Height 157.48 cm 05/30/2016 [facility] Weight 71.818 05/30/2016 [facility] BMI Calculated 28.96 05/30/2016 [facility] Heart Rate 61 05/30/2016 [facility] Respitory Rate 18 05/30/2016 [facility] Systolic (mm Hg) 154 05/30/2016 [facility] Diastolic (mm Hg) 82 05/30/2016 [facility] Encounters Location Location Details Encounter Type Encounter Number Reason For Visit Attending Provider ADM Date DC Date Status Source [facility] Outpatient [id number] Nelson Bello 05/30/2016 05/31/2016 MH [facility] OP Therapy Patients [id number] Chung Logan 06/08/2016 07/08/2016 [facility] OP Therapy Patients [id number] Chung Logan 07/10/2016 08/09/2016 [facility] Outpatient [id number] Nelson Bello 07/17/2016 07/18/2016 [facility] Outpatient [id number] Nelson Bello 09/17/2016 09/18/2016 [facility] Outpatient [id number] Nelson Bello 12/04/2016 12/05/2016 [facility] Therapy [id number] Chung Logan 12/07/2016 01/06/2017 MH [facility] Outpatient [id number] Nelson Bello 12/27/2016 12/28/2016 MH [facility] Outpatient [id number] Nelson Bello 01/02/2017 01/03/2017 MH [facility] Outpatient [id number] Nelson Bello 02/14/2017 02/15/2017 MH [facility] Outpatient [id number] Nelson Bello 03/01/2017 03/02/2017 MH [facility] Recurring [id number] Chung Logan 03/26/2017 04/25/2017 MH [facility] Outpatient [id number] Nelson Bello 03/29/2017 03/30/2017 MH [facility] Outpatient [id number] Nelson Bello 04/08/2017 04/09/2017 MH [facility] Outpatient [id number] Nelson Bello 04/16/2017 04/17/2017 MH [facility] Outpatient Imaging [place] Out[facility] Di[facility] Services [id number] Emerson Lindsey Jr 05/14/2017 05/15/2017 MH OPID [place] [facility] Outpatient [id number] Nelson Bello 06/18/2017 06/19/2017 MH [facility] Outpatient Imaging - [place] Out[facility] Diag Services [id number] Christophe Muro 06/19/2017 06/20/2017 MH OPID [place] [facility] Outpatient Imaging - [place] Out[facility] Diag Services [id number] Christophe Muro 07/08/2017 07/09/2017 MH OPID [place] [facility] Outpatient Imaging - [place] Out[facility] Diag Services [id number] Christophe Muro 07/11/2017 07/12/2017 MH OPID [place] Procedures Procedure Code Date Perfomer Comments Source Incision<sup>1</sup> [id number] [place] above (R) eye. [facility] [place] Incision<sup>1</sup> [id number] [place] above (R) eye. [facility] Incision<sup>1</sup> [id number] [place] above (R) eye. [facility] [place] Incision<sup>1</sup> [id number] [place] above (R) eye. [facility] [place] Assessment and Plan No Data Provided for This Section Plan of Care No Data Provided for This Section Social History Social History Date Source Social History TypeResponse Substance Abuse Use: None. Sexual Sexually active: Yes. Exercise Exercise duration: 30. Exercise frequency: Daily. Exercise type: Walking.1 Employment/School Status: Unemployed. Highest education level: University degree(s). Alcohol Current, Type Wine. Frequency: 1-2 times per month. Smoking Status Never smoker; Tobacco use per day: 0; Previous treatment: None; Exposure to Tobacco Smoke None; Cigarette Smoking Last 365 Days No; Reg Smoking Cessation Counseling No upper limbs and abds 07/17/2016 [facility] Social History TypeResponse Substance Abuse Use: None. Sexual Sexually active: Yes. Exercise Exercise duration: 30. Exercise frequency: Daily. Exercise type: Walking.1 Employment/School Status: Unemployed. Highest education level: University degree(s). Alcohol Current, Type Wine. Frequency: 1-2 times per month. Smoking Status Never smoker; Previous treatment: None; Exposure to Tobacco Smoke None; Cigarette Smoking Last 365 Days No; Reg Smoking Cessation Counseling No; Tobacco use per day: 0; entered on: 06/18/17 1upper limbs and abds 07/17/2016 [facility] Social History TypeResponse Substance Abuse Use: None. Sexual Sexually active: Yes. Exercise Exercise duration: 30. Exercise frequency: Daily. Exercise type: Walking.1 Employment/School Status: Unemployed. Highest education level: University degree(s). Alcohol Current, Type Wine. Frequency: 1-2 times per month. Smoking Status Never smoker; Previous treatment: None; Exposure to Tobacco Smoke None; Cigarette Smoking Last 365 Days No; Reg Smoking Cessation Counseling No; Tobacco use per day: 0; entered on: 06/18/17 1upper limbs and abds 07/17/2016 [facility] [place] Social History TypeResponse Substance Abuse Use: None. Sexual Sexually active: Yes. Exercise Exercise duration: 30. Exercise frequency: Daily. Exercise type: Walking.1 Employment/School Status: Unemployed. Highest education level: University degree(s). Alcohol Current, Type Wine. Frequency: 1-2 times per month. Smoking Status Never smoker; Previous treatment: None; Exposure to Tobacco Smoke None; Cigarette Smoking Last 365 Days No; Reg Smoking Cessation Counseling No; Tobacco use per day: 0; 1upper limbs and abds 07/17/2016 [facility] [place] Family History No Data Provided for This Section Advance Directives No Data Provided for This Section Functional Status No Data Provided for This Section
[2018-11-27 09:45] VITALS: BP 113/67
--- NOTE | 2018-11-27 11:35 | Operative Report ---
DATE OF PROCEDURE: 11/27/2018 SURGEON: Mg Grossman MD PREOPERATIVE DIAGNOSES: 1. Deformity of right breast reconstruction. 2. Acquired absence of bilateral nipples. POSTOPERATIVE DIAGNOSES: 1. Deformity of right breast reconstruction. 2. Acquired absence of bilateral nipples. PROCEDURE: 1. Revision of right breast reconstruction with adipofascial flap. 2. Bilateral nipple reconstruction. ANESTHESIA: General. HISTORY: The patient is a 67-year-old female, who underwent bilateral mastectomies and is undergoing staged reconstruction. There is deformity of the medial aspect of the right breast and there is absence of bilateral nipples. The risks, benefits, and alternatives of treatment were discussed with the patient. She is prepared to undergo the procedure as outlined. PROCEDURE IN DETAIL: The patient was marked preoperatively in the holding area. She was brought to the operating theater and after the induction of adequate general anesthesia, she was prepped and draped in a supine position and a time-out was performed. The procedure was begun on the medial aspect of the right breast. The area of deformity was incised through the skin and subcutaneous tissue, bleeding was controlled using the electrocautery. Using the electrocautery, an adipofascial flap was developed by undermining the fascia and the subcutaneous fat superiorly. At this point, the upper half of the flap was then brought in a caudal direction and it was noted to satisfactorily correct the depression on the medial aspect of the right breast. In order to keep the flap advanced, 4-0 Vicryl sutures were used in an interrupted buried fashion to secure the flap down to the inframammary fold. At the completion of this portion of the procedure, the flap was well advanced, the depression was corrected. The dermis was then closed with 4-0 Monocryl in an interrupted buried fashion and the skin was approximated with 4-0 Monocryl in a running subcuticular fashion. The placement of the nipples was marked preoperatively with the patient in the upright position. Using 45 mm cookie cutters, the nipples reconstruction area was then circumscribed. At this point, using a tripartite type flap, this was marked out and designed around both nipples. At this point, the lateral wings were incised through the skin and subcutaneous tissue, bleeding controlled using the electrocautery. Centrally, the lower portion of the flap was incised through the skin and subcutaneous tissue as well, bleeding controlled with the electrocautery. Using the electrocautery, the dissection of the flaps continued from the periphery to the central aspect going from superficial to deep. At this point, once the lateral wings and the medial flaps were developed, the lateral wings were brought together inferiorly towards the 6 o'clock position and secured using 5-0 chromic suture in an interrupted fashion. The upper flap was then brought caudally and secured to the lateral wings using 5-0 chromic sutures in an interrupted fashion as well. At this point, the secondary defect was closed by advancing the lower flap superiorly and closing the incisions with 5-0 chromic sutures in an interrupted fashion as well. At the completion of the procedure, both nipples appeared to be well vascularized and had excellent projection. Bactroban ointment and Xeroform gauze were placed on both reconstructed areas. 4 x 4 gauze was designed not to put pressure on the nipple reconstructions and then tape was held to hold the dressings in place. On the reconstructed adipofascial flap, 1 inch Steri-Strips were used and then sterile 4x4s and OpSite was placed. The estimated blood loss for the entire procedure was less than 50 mL. She tolerated the procedure well and was brought to recovery room in satisfactory condition and discharged with a postoperative instruction sheet as well as a followup appointment. MD CLAYTON Kennedy/ESTELA /[id number]
== END | disposition home or self-care (01) ==
LOC: OR 05:31
PROVIDERS: ATTEND Plastic Surgery
DX: N65.0 Deformity of reconstructed breast (principal); Z90.13 Acquired absence of bilateral breasts and nipples; I10 Essential (primary) hypertension; I44.0 Atrioventricular block, first degree; F41.9 Anxiety disorder, unspecified; Z88.6 Allergy status to analgesic agent; Z01.810 Encounter for preprocedural cardiovascular examination; Z01.812 Encounter for preprocedural laboratory examination; Z79.82 Long term (current) use of aspirin
CPT/HCPCS: 19350; 19380; 36415; 85025; 88304; 93005; J0131; J0690; J1100; J2001; J2250; J2405; J2704; J1580; J3010; J7040

== ENCOUNTER → 2019-03-31 | Day surgery (SDC) | payer MEDICARE ==
[2019-03-30 11:30] LABS: BASOPHILS % 0.7 % (0.0-1.0); EOSINOPHILS # (AUTO) 0.7 (0.0-0.4); EOSINOPHILS % 11.1 % (0.0-6.0); HEMATOCRIT 36.9 % (34.2-44.1); LYMPHOCYTES # (AUTO) 1.4 (1.0-3.2); LYMPHOCYTES % 24.2 % (18.0-39.1); MEAN CORPUSCULAR HEMOGLOBIN 29.2 pg (28-32); MEAN CORPUSCULAR HGB CONC 32.5 g/dL (31-35); MEAN CORPUSCULAR VOLUME 89.8 fL (81-99); MONOCYTES # (AUTO) 0.4 (0.2-0.8); NEUTROPHILS # (AUTO) 3.4 (2.1-6.9); NEUTROPHILS % 57.7 % (38.7-80.0); PLATELET COUNT 162 x10e3/uL (140-360); RED BLOOD COUNT 4.11 x10e6/uL (3.6-5.1); RED CELL DISTRIBUTION WIDTH 13.2 % (11.7-14.4)
--- NOTE | 2019-03-30 12:08 | Diagnostic Imaging Report ---
Chest, 2 views, 03/30/2019. History: Preop, breast surgery. Comparison: 07/02/2018. Findings: The cardiomediastinal silhouette and pulmonary vasculature are within normal limits. The lungs are clear without evidence of consolidation or pleural effusion. Left subclavian Port-A-Cath is unchanged in appearance. Degenerative changes are present in the thoracic spine. Bilateral breast implant are present. There are no acute osseous or soft tissue abnormalities. Impression: No acute cardiopulmonary abnormality. Signed by: Osvaldo Ellsworth on 03/30/2019 12:05 PM
[~2019-03-31] MED LIST changes: -ACETAMINOPHEN 1000 MG/100 ML IV ONE; +ASPIRIN81 MG PO; -BACITRACIN 50,000 UNIT VIAL ONE; +BENICAR5 MG PO; +CALCIUM + VITA1 EACH PO; -CEFAZOLIN SOD 1 GM VIAL ONE; -CEFAZOLIN SOD 1 GM/NS 50ML 0 ML IV ONE; +CEFAZOLIN SOD 1 GM/NS 50ML 100 ML IV ONE; -EPHEDRINE SULFATE INJ 50 MG/10 ML SYR ONE; -GENTAMICIN SULFATE 40 MG/ML 2 ML VIAL ONE; +KETOROLAC TROMETHAMINE 30 MG/ML VIAL ONE; +LIDOCAINE HCL 1% LOCAL INJ 20 ML VIAL ONE; -MUPIROCIN 2% OINT 22 GM TUBE ONE; -SODIUM CHLORIDE 0.9% 500ML 0 ML ONE
[2019-03-31 09:00] VITALS: BP 132/78
--- NOTE | 2019-03-31 12:05 | Operative Report ---
DATE OF PROCEDURE: 03/31/2019 SURGEON: Tigre Denson MD PREOPERATIVE DIAGNOSIS: Carcinoma of breast, status post chemotherapy. POSTOPERATIVE DIAGNOSIS: Carcinoma of breast, status post chemotherapy. PROCEDURE: Removal of left subclavian subcutaneous venous access port. WORM PACKER: None. ANESTHESIA: General. INDICATIONS AND FINDINGS: The patient is a 68-year-old female, who has a venous access port placed for chemotherapy for carcinoma of breast. At Surgery, the port and catheter were removed intact. TECHNIQUE: After adequate general anesthesia, the patient is in supine position, and the left subclavian area was prepped and draped in a sterile fashion with Betadine solution. According to the wound from the previous port placement, incision was made, carried down through the subcutaneous tissue. The port was identified in the subcutaneous pocket, it was freed from the subcutaneous pocket. The port and catheter were removed intact. The subcutaneous tunnel exiting toward the vein was suture ligated with 3-0 Vicryl. Hemostasis was achieved. The wound was then closed with 3-0 Vicryl subcutaneous tissue and 4-0 Vicryl subcuticular to the skin and was infiltrated with 1% lidocaine. Steri-Strips and sterile dressing were applied. The patient tolerated the procedure well. Estimated blood loss was 5 mL. There were no complications. All counts were correct and the patient was taken to the recovery room in satisfactory condition. Tigre Denson MD DWG/MODL /[id number]
== END | disposition home or self-care (01) ==
LOC: OR 05:50
PROVIDERS: ATTEND Surgery
DX: C50.919 Malignant neoplasm of unspecified site of unspecified female breast (principal); Z45.2 Encounter for adjustment and management of vascular access device; I10 Essential (primary) hypertension; Z90.13 Acquired absence of bilateral breasts and nipples; E78.5 Hyperlipidemia, unspecified; K57.90 Diverticulosis of intestine, part unspecified, without perforation or abscess without bleeding; Z01.810 Encounter for preprocedural cardiovascular examination; Z01.812 Encounter for preprocedural laboratory examination; Z01.818 Encounter for other preprocedural examination; Z79.82 Long term (current) use of aspirin
CPT/HCPCS: 36415; 36590; 71046; 85025; 93005; J0690; J1100; J1885; J2001 ×2; J2250; J2405; J2704; J3010